=== PATIENT | female | born 1960 | race Caucasian/White ===

== ENCOUNTER → 2017-10-24 | Outpatient (CLI) | payer BC ==
--- NOTE | 2017-10-28 09:18 | MAM ---
EXAM DESCRIPTION: 3D Screening BILATERAL : Digital Mammography. CLINICAL HISTORY: 57 years Female SCREEN . No complaints. No family history of breast cancer. Postmenopausal. No HRT. COMPARISON: Baseline study at this facility. No prior reports available. TECHNIQUE: Bilateral CC and MLO projection full-field images, 3-D tomosynthesis digital mammographic technique. Also bilateral synthesized CC/ MLO full-field images. CAD not utilized. FINDINGS: The breast parenchymal density pattern is: Scattered areas of fibroglandular density. No skin thickening or nipple retraction bilateral solitary microcalcifications and solitary microcalcifications. Left axillary lymph nodes. Possible mass density in the 1100 clock position of the anterior third of the right breast which is similar density to the surrounding fibroglandular tissues. Lobulated and spiculated margins. Small calcifications. 5 cm from the nipple. No focal, stellate mass or density, focal asymmetry , and no suspicious microcalcifications left breast. IMPRESSION: BI-RADS CATEGORY: 0 - INCOMPLETE- Need additional imaging evaluation. FOLLOW-UP: Recall for additional imaging: Diagnostic 3-D tomosynthesis full field LM images bilateral breasts. Focal spot digital compression region of interest anterior right breast CC projection and focal spot digital magnification same region LM projection. Targeted right breast ultrasound. Written communication concerning the IMPRESSION and Follow-up, will be mailed to the patient and referring health care provider. Electronically signed by: Venkata Henry MD 10/28/2017 9:17 AM CDT
== END ==
LOC: MAMMO 10:53
PROVIDERS: ATTEND Nurse Practitioner Family
DX: Z12.31 Encounter for screening mammogram for malignant neoplasm of breast (principal)

== ENCOUNTER → 2017-11-05 | Outpatient (CLI) | payer BC ==
--- NOTE | 2017-11-05 11:08 | US ---
EXAM DESCRIPTION: Breast,Right: Ultrasound CLINICAL HISTORY: 57 yearsFemaleABNORMAL MAMMO. Probable mass density anterior right breast. COMPARISON: Digital diagnostic 3-D tomosynthesis bilateral mammography on this visit. TECHNIQUE: Transcutaneous scanning of the right breast utilizing two-dimensional and Doppler modes. Scanning performed by the seasonal customer service associate and Dr. Henry. FINDINGS: Scanning at the 1100 clock position, anterior third right breast, 4 cm from the nipple. Hypoechoic lesion with spiculated margins, parallel orientation with posterior acoustic shadowing. Dimensions of the mass are 7.1 x 6.5 mm. Normal vascularity. No adjacent solid masses or cysts. No parenchymal edema or large calcifications. Minimally palpable on the skin surface but no skin changes. No abnormal parenchymal vascularity. IMPRESSION: 1. BI-RADS CATEGORY: 5 - HIGHLY SUGGESTIVE OF MALIGNANCY. 2. Please refer to bilateral diagnostic 3-D tomosynthesis mammographic examination and report on this visit. The FINDINGS and the FOLLOW-UP plan were reviewed in person with the patient after the examination. Written communication explaining the IMPRESSION and FOLLOW-UP will be mailed to the patient and referring care provider. Critical communication: The critical value was discussed directly by phone with Dr. Yamile Padilla at approximately 1050 hours, on November 05, 2017. Electronically signed by: Venkata Henry MD 11/05/2017 11:07 AM CDT
--- NOTE | 2017-11-05 11:18 | MAM ---
EXAM DESCRIPTION: 3D Diagnostic, Bilateral: Digital Mammography CLINICAL HISTORY: 57 yearsFemaleABNORMAL MAMMOGRAM . Possible mass density upper outer quadrant anterior third of the right breast.. COMPARISON: 3-D Claire synthesis screening bilateral mammography 10/24/2017.. Targeted right breast ultrasound following this examination. Report from prior examination also reviewed. TECHNIQUE: Bilateral LM projection full-field images, 3-D tomosynthesis digital mammographic technique. Also bilateral synthesized LM full-field images. Spot magnification 2-D of the region of interest right breast, CC and LM projections CAD for 2-D magnification. FINDINGS: The breast parenchymal density pattern is: Scattered areas of fibroglandular density. No skin thickening or nipple retraction irregular mass density with spiculated margins measuring approximately 1 cm x 1 cm at the 1100 clock position of the right breast anterior third, approximately 4 cm from the nipple. Magnification views show spiculated margins, small microcalcifications and posterior extension of the mass. Denser than the surrounding soft tissues. Adjacent scattered calcifications and solitary and in groups. Similar calcifications in groups and solitary arrangements in the left breast. Focal asymmetry also noted at the 900 clock position of the right breast, 10 cm from the nipple. ULTRASOUND: Scanning at the 1100 clock position, anterior third right breast, 4 cm from the nipple. Hypoechoic lesion with spiculated margins, parallel orientation with posterior acoustic shadowing. Dimensions of the mass are 7.1 x 6.5 mm. Normal vascularity. No adjacent solid masses or cysts. No parenchymal edema or large calcifications. Minimally palpable on the skin surface but no skin changes. No abnormal parenchymal vascularity. IMPRESSION: BI-RADS CATEGORY: 5 HIGHLY SUSPICIOUS FINDINGS. HIGHLY SUGGESTIVE OF MALIGNANCY. Recommendation: Surgical consultation and/or tissue diagnosis. The FINDINGS and the FOLLOW-UP plan were reviewed in person with the patient after the examination. Written communication explaining the IMPRESSION and FOLLOW-UP will be mailed to the patient and referring care provider. CRITICAL COMMUNICATION: The critical value was discussed directly by phone with Dr. Yamile Padilla at approximately 1050 hours, on November 05, 2017. Electronically signed by: Venkata Henry MD 11/05/2017 11:16 AM [employer]
== END ==
LOC: MAMMO 08:42
PROVIDERS: ATTEND Nurse Practitioner Family
DX: R92.8 Other abnormal and inconclusive findings on diagnostic imaging of breast (principal)
CPT/HCPCS: 76641; 77066; G0279

== ENCOUNTER → 2017-11-13 | Outpatient (CLI) | payer BC ==
--- NOTE | 2017-11-13 10:58 | OP ---
DATE OF PROCEDURE: 11/13/17 PREOPERATIVE DIAGNOSIS: 1. Abnormal right mammogram with two lesions that are solid by ultrasound and have irregular margin. POSTOPERATIVE DIAGNOSIS: 1. Abnormal right mammogram with two lesions that are solid by ultrasound and have irregular margin. PROCEDURE: 1. Needle core biopsy, sonographically guided, of two discrete lesions, right breast. SURGEON: Minh Weber MD. FELT DYEING MACHINE TENDER: None. ANESTHESIA: Local infiltration of 1% lidocaine. INDICATION: The patient is a 57-year-old female who on routine mammography was found to have a lesion at the 11 o'clock position. Ultrasound reveals two separate lesions, one at approximately 12 o'clock and one at 11 o'clock. She was brought to the Ultrasound Suite today for biopsy of both under ultrasound guidance after the risks, benefits and alternatives are discussed and accepted. FINDINGS: Multiple cores were taken with the ultrasound revealing the biopsy needle within the mass. PROCEDURE: After the patient was placed in the supine position, the breast was examined with the ultrasound device and marked appropriately. The breast medial to the ulnar styloid device was then prepped with Betadine and draped. When this was done, local anesthesia was obtained and the 25-gauge needle was used to infiltrate the path between the insertion site and the mass. The skin was then incised with a 15 blade and then, as noted, multiple passes were taken with the biopsy needle with the ultrasound revealing it to be within the mass. The specimens were then set aside. There was significant bleeding which was controlled with pressure. The second lesion was then identified. A second entry site was infiltrated with local anesthesia and again a stab wound was performed. Again, the cores were taken of the 11 o'clock lesion without difficulty. The specimens were sent separately marked medial right breast at 12 o'clock and 11 o'clock right breast. Hemostasis was obtained with pressure and then single sutures of 4-0 Nylon were placed in each incision and closed. A sterile pressure dressing was applied with two Jorge wraps. The patient tolerated the procedure well. Estimated blood loss was approximately 25 to 50 mL. All sponge, needle and instrument counts were correct. #[id number] [facility]
--- NOTE | 2017-11-13 17:23 | US ---
EXAM DESCRIPTION: Biopsy/Needle Guidance CLINICAL HISTORY: 57 years Female RT BT MASS COMPARISON: Diagnostic ultrasound of the right breast on 11/05/2017. TECHNIQUE: The procedure was performed by Dr. Weber. Repeat ultrasound localized lesion at the 1200 clock position of the right breast, 4 cm from the nipple. Second lesion localized at the 1100 clock position of the right breast 4 cm from the nipple.. Sterile preparation. Sterile ultrasound guidance during needle passes. FINDINGS: Multiple images show an echogenic needle traversing the lesion at the 1200 clock position of the right breast in orthogonal axes. More images show an echogenic needle traversing the lesion at the 1100 clock position of the right breast in orthogonal axes. IMPRESSION: Successful, ultrasound-guided core needle biopsy of 2 lesions in the right breast by Dr. Weber. Adequate core samples were obtained. Pathology examination at remote facility, results pending. Electronically signed by: Venkata Henry MD 11/13/2017 5:22 PM CDT
== END ==
LOC: US 07:20
PROVIDERS: ATTEND Surgery
DX: N63.11 Unspecified lump in the right breast, upper outer quadrant (principal)

== ENCOUNTER → 2017-11-26 | Outpatient (CLI) | payer BC | LOC: LAB.O 09:23 | PROVIDERS: ATTEND Surgery | DX: C50.411 Malignant neoplasm of upper-outer quadrant of right female breast (principal); G44.52 New daily persistent headache (NDPH) ==

== ENCOUNTER → 2017-11-27 | Outpatient (CLI) | payer BC ==
--- NOTE | 2017-11-27 15:53 | RAD ---
EXAM DESCRIPTION: Chest,2 Views CLINICAL HISTORY: C50.411,. Malignant neoplasm of the upper-outer quadrant of right female breast. COMPARISON: Portable chest 05/01/2008 TECHNIQUE: PA, lateral views. FINDINGS: Lungs: Well-inflated with no acute infiltrate. Improved lung volumes since the prior study. Pleural spaces: No effusion or pneumothorax bilaterally. Heart: Normal size. Pulmonary Vascularity: Not increased. Mediastinum: Not widened. Aorta: Unremarkable. Bony Thorax/Spine: No acute bony thoracic abnormalities. Thoracic disc space narrowing at multiple levels. IMPRESSION: No radiographic evidence of acute cardiopulmonary disease. Stable since May 2008. Electronically signed by: Venkata Henry MD 11/27/2017 3:52 PM CDT
--- NOTE | 2017-11-27 16:20 | CT ---
EXAM DESCRIPTION: Head w/wo Contrast: Computed Tomography. CLINICAL HISTORY: BREAST CA-C51.411, DAILY JORDAN-G44.52 COMPARISON: Chest CT scan 11/27/2017. Ultrasound-guided biopsy right breast 11/13/2017 positive for malignancy. TECHNIQUE: Spiral -axial scans through the head and brain at 2.5 mm intervals, without and with nonionic IV contrast. Coronal and sagittal 2.0 reconstructions, before and after IV contrast. No adverse reactions. Total Exam DLP: 1504.95 mGy-cm. This exam was performed according to our departmental CT dose-optimization program which includes automated exposure control, adjustment of the mA and/or kV according to patient size and/or use of iterative reconstruction technique; to reduce radiation dose to as low as reasonably achievable (ALARA). FINDINGS: No hemorrhage. No mass-effect and no midline shift. Normal contrast enhancement. Small bilateral heterogeneous foci of low-density in the periventricular white matter. Not associated with hemorrhage or abnormal contrast enhancement. Small calcifications bilateral basal ganglia.Vascular calcifications right cavernous ICA.; physiologic calcifications in the pineal gland and choroid plexus. No effacement or displacement of the ventricles, CSF spaces, or subdural spaces. Normal contrast enhancement. No extra axial fluid collection or hemorrhage. No gross abnormalities of the bony calvarium. No unusual enhancement in the [place]. IMPRESSION: 1. No hemorrhage. No mass effect or midline shift.. Minimal bilateral white matter low-density may represent early cerebral microvascular disease along with basal ganglial calcifications. No mass effect or abnormal contrast enhancement. Electronically signed by: Venkata Henry MD 11/27/2017 4:19 PM CDT
== END ==
LOC: CT 08:11
PROVIDERS: ATTEND Surgery
DX: C50.411 Malignant neoplasm of upper-outer quadrant of right female breast (principal); G44.52 New daily persistent headache (NDPH)

== ENCOUNTER → 2017-11-28 | Outpatient (CLI) | payer BC ==
--- NOTE | 2017-11-28 20:48 | NM ---
EXAM DESCRIPTION: Bone Scan, Whole Body CLINICAL HISTORY: BREAST CANCER right. Biopsy proven October 2017. COMPARISON: Recent CT scan of the head with and without contrast and chest x-ray. TECHNIQUE: Patient injected with 30 mCi of technetium 99M MDP. IV. Delayed gamma camera images from various planes were obtained 3 hr after injection. FINDINGS: Small focal area of increased radiopharmaceutical activity posterior right ninth rib. Focal activity in the L5 and L2 vertebral bodies posteriorly. Otherwise normal activity in the long bones and flat bones. Minimal increased focal activity in the posterior left heel. Normal soft tissue activity. IMPRESSION: 1. Focal activity/uptake posterior right ninth rib. Differential includes previous trauma or metastasis. Correlate with rib films. Consider follow-up chest CT scan. 2. Focal activity/uptake in the L2 region and L5 region which may represent spondylosis, facet degeneration, or metastasis. Correlate with lumbar spine radiographs. Electronically signed by: Venkata Henry MD 11/28/2017 8:47 PM CDT
== END ==
LOC: NM 09:18
PROVIDERS: ATTEND Surgery
DX: C50.411 Malignant neoplasm of upper-outer quadrant of right female breast (principal); G44.52 New daily persistent headache (NDPH)

== ENCOUNTER → 2017-12-02 | Outpatient (CLI) | payer BC ==
--- NOTE | 2017-12-02 15:53 | RAD ---
EXAM DESCRIPTION: Ribs,Right 3 Views CLINICAL HISTORY: ABNORMAL BONE SCAN increased uptake in the right ninth rib COMPARISON: Bone scan dated 28 Nov 2017 TECHNIQUE: 4 views FINDINGS: No rib abnormality is seen. No pneumothorax is detected. Surgical clips are seen in the right upper quadrant. Pedicle screw fusion of the lower lumbar spine is observed. IMPRESSION: No rib abnormality is seen. Electronically signed by: Frederick Tejeda MD 12/02/2017 3:52 PM CDT
== END ==
LOC: LAB.O 15:00
PROVIDERS: ATTEND Surgery
DX: R93.7 Abnormal findings on diagnostic imaging of other parts of musculoskeletal system (principal)

== ENCOUNTER 2018-01-10 05:50 | Inpatient (IN) | payer BC ==
[2018-01-10] MEDS ORDERED: PROPOFOL 200 MG/20 ML VIAL IV ONE (07:00)
[2018-01-10] MEDS ORDERED: PANTOPRAZOLE SODIUM IV 40 MG VIAL ONE (07:00)
[2018-01-10] MEDS ORDERED: DEXAMETHASONE INJ 10 MG/ML VIAL ONE (07:00)
[2018-01-10] MEDS ORDERED: LIDOCAINE 1% 2 ML VIAL INJ ONE (07:00)
[2018-01-10] MEDS ORDERED: HYDROmorphone HCL INJ 2 MG/ML VIAL ONE ×2 (07:00→09:22)
[2018-01-10] MEDS ORDERED: MIDAZOLAM INJ 2 MG/2 ML VIAL ONE (07:00)
[2018-01-10] MEDS ORDERED: raNITIdine HCL INJ 25 MG/ML VIAL ONE (07:00)
[2018-01-10] MEDS ORDERED: METOCLOPRAMIDE HCL INJ 10 MG/2 ML VIAL ONE (07:00)
[2018-01-10] MEDS ORDERED: ceFAZolin SODIUM 1 GM VIAL ONE ×3 (07:00→10:00)
[2018-01-10] MEDS ORDERED: fentaNYL CITRATE INJ 50 MCG/ML AMP ONE (07:00)
[2018-01-10] MEDS ORDERED: KETOROLAC TROMETHAMINE INJ 30 MG/ML VIAL ONE (07:00)
[2018-01-10] MEDS ORDERED: LACTATED RINGERS 1,000 ML ONE (07:11)
[2018-01-10] MEDS ORDERED: SODIUM CHL 0.9% 100ML MINI-BAG 100 ML IVPB ONE (07:11)
[2018-01-10] MEDS ORDERED: LEVALBUTEROL NEBS 1.25 MG/3 ML VIAL NEB ONE ×2 (07:57→14:28)
[2018-01-10] MEDS ORDERED: ACETAMINOPHEN IV 1000MG 100 ML ONE (09:19)
[2018-01-10] MEDS ORDERED: ELECTROLYTE-A 1,000 ML IVS ONE (11:42)
[2018-01-10] MEDS ORDERED: MORPHINE SULFATE INJ 10 MG/ML VIAL IV PRN (13:59)
[2018-01-10] MEDS ORDERED: ONDANSETRON INJ 4 MG/2 ML VIAL IV PRN (13:59)
--- NOTE | 2018-01-10 14:20 | HP ---
CHIEF COMPLAINT: Biopsy-prove carcinoma of the right breast. HISTORY OF PRESENT ILLNESS: The patient is a 57-year-old female who was found to have abnormal mammogram. Needle core biopsy of two lesions revealed invasive carcinoma of the right breast. She has a cardiac history and underwent a cardiac clearance prior to general anesthesia. This has been done. She has a negative metastatic workup. After the risks, benefits and alternatives to surgical treatment of her right breast carcinoma, she is admitted to the Surgical Suite for a right modified radical mastectomy and a left simple mastectomy. PAST MEDICAL HISTORY: 1. Gastroesophageal reflux disease. 2. Anxiety. 3. Depression. 4. History of migraine headaches. 5. History of urinary tract infections. PAST SURGICAL HISTORY: 1. Femur fracture as a child. 2. x2. 3. Back surgery. 4. Gallbladder surgery 13 years ago. CURRENT MEDICATIONS: She takes no medications. ALLERGIES: NO KNOWN DRUG ALLERGIES. FAMILY HISTORY: Noncontributory. SOCIAL HISTORY: The patient is . She has a significant smoking history of 20 to 30 pack years. No history of alcohol abuse. REVIEW OF SYSTEMS: There is no history of chest pain or shortness of breath, no history of change in her bowel habits or weight loss, no history of melanotic stools, hematemesis or hematochezia. She has had a recently urinary tract infection, but is currently without symptoms. PHYSICAL EXAMINATION: GENERAL: The patient is awake, alert, in no acute distress. VITAL SIGNS: The patient is currently afebrile, normotensive. HEENT: Sclerae nonicteric. Mucous membranes moist. NECK: Supraclavicular area and axillae without adenopathy. BACK: Without CVA tenderness. CHEST: Equal breath sounds bilaterally. HEART: Regular rate and rhythm. BREASTS: Bilateral breasts are without discrete mass, skin change or nipple discharge. There are two well-healed needle core biopsy sites in the right breast. ABDOMEN: Soft without organomegaly or masses. PELVIC/RECTAL: Deferred. EXTREMITIES: Without cyanosis, clubbing or edema. LABORATORY: Preoperative hemoglobin 16, weight 7,400. Normal differential. Platelet count 284,000. Potassium 4.5, creatinine 0.68. ASSESSMENT: 1. Biopsy-prove carcinoma of the breast. PLAN: The patient is admitted for right modified radical mastectomy and left simple mastectomy. #[id number] [facility]
--- NOTE | 2018-01-10 14:41 | OP ---
DATE OF PROCEDURE: 01/10/18 PREOPERATIVE DIAGNOSIS: 1. Biopsy-proven carcinoma of the right breast. POSTOPERATIVE DIAGNOSIS: 1. Biopsy-proven carcinoma of the right breast. PROCEDURE: 1. Right modified radical mastectomy. 2. Left simple mastectomy. SURGEON: Minh Weber MD. ADMINISTRATIVE SUPERVISOR: None. ANESTHESIA: General endotracheal anesthesia. INDICATION: The patient is a 57-year-old female who on routine mammography was found to have two suspicious lesions. Needle core biopsy revealed invasive carcinoma. She was originally scheduled for surgery, but had an abnormal EKG, so she underwent a cardiac clearance and has been found to be at low risk. She was brought to the Surgical Suite today for right modified radical mastectomy and left simple mastectomy after the risks, benefits and alternatives were discussed. The patient wished to undergo simple mastectomy due to the large breast size, problems with her back and did not want to have problems with her balance or back pain due to the surgery. She also felt it was good to no longer require further mammography or possible biopsies in the future. She is aware that it did not decrease her risk of from breast cancer. FINDINGS: There was no obvious lymphadenopathy in the specimen. The nerves were identified. PROCEDURE: After adequate general endotracheal anesthesia was obtained in the supine position, the patient was prepped and draped in the usual sterile manner. She was given 2 grams of Ancef intravenously. Surgical time-out was taken. At this point, the breasts were both marked with a marking pen. The right breast superior flap was then made with a sharp knife. Prior to this, a towel was placed over the left breast. Dissection was carried down through the skin using electrocautery. Radha thyroid grasping forceps were then placed on the skin edge and the dissection of the superior flap was performed medially to the sternal border, superior to the clavipectoral fascia and laterally into the axilla using electrocautery. When this was done, hemostasis was obtained with electrocautery and a moist sponge was placed under the flap. The inferior flap was then taken in the same manner. When this was done, a sponge was placed under the inferior flap. Retractors were placed under the superior flap and the breast was dissected from superior and medial, inferiorly and laterally, eventually into the axilla. The axillary node dissection was then performed with the chest wall being the medial border, the thoracodorsal bundle and the long thoracic nerve of the [place] the posterior border and the axillary vein the superior border. When this was done, the specimen was sent as an en bloc specimen. The wound was then copiously irrigated with saline. Hemostasis was noted to be adequate. At this point, two stab wounds were made in the inferior flap and RADHA drains were placed, introduced through the stab wounds, one placed on the chest wall and one in the axilla. They were sutured in place with 3-0 Nylon ligatures. When this was done, the skin edges were approximated with a running 3-0 Vicryl suture. It was then irrigated through the suture and aspirated through the drains. The skin edges were approximated with a skin stapler. The drains were cut to appropriate length and placed to closed suction drainage. When this was done, a towel was placed over the wound. Instruments, gowns and gloves were all changed. New towels were placed complete around the wound. At this point, the superior flap of the left breast was taken, first with a sharp knife and then with electrocautery, then the Radha clamps and dissection with electrocautery. When this was done, to the clavipectoral fascia and the sternal border medially, sponge was placed under the flap and the inferior flap was taken in a like manner. When this was done, the wound was again irrigated with saline. Two RADHA drains were placed through the inferior flap and sutured in place with 3-0 Nylon ligatures. The skin edges were approximated with a running 3-0 Vicryl suture. Again, the wound was irrigated through the wound and aspirated through the drains. Skin edges were approximated with a skin stapler. The drains were cut and placed to closed suction drainage with grenades. Sterile pressure dressings were applied. The patient was then awakened and taken to the Recovery Room in stable condition. Estimated blood loss was approximately 250 to 300 mL. All sponge, needle and instrument counts were correct. #[id number] [facility]
[2018-01-10] MEDS: HYDROcodone 5MG/APAP 325MG 1 EA TAB PO PRN ×2 (17:56→22:48)
[2018-01-10] MEDS: LACTATED RINGERS 1,000 ML IVS PRN (17:58)
[2018-01-10] MEDS: NICOTINE PATCH 14 MG TD SCH (17:59)
[2018-01-10] MEDS ORDERED: LEVALBUTEROL NEBS 1.25 MG/3 ML VIAL NEB PRN (18:11)
[2018-01-10] MEDS: ceFAZolin SODIUM 2 GRAMS PREMI 2 GM in PREMIX BAG 1 BAG IVPB SCH (18:46)
[2018-01-10] MEDS ORDERED: PANTOPRAZOLE SODIUM TAB 40 MG PO ONE (19:11)
[2018-01-10] MEDS ORDERED: ceFAZolin SODIUM 2 GRAMS PREMI 50 ML IVPB ONE (19:12)
[2018-01-10] MEDS: LEVALBUTEROL NEBS 1.25 MG/3 ML VIAL NEB SCH (20:06)
--- NOTE | 2018-01-10 22:31 | CONS ---
DATE OF CONSULTATION: 01/10/18 SUPERVISING PHYSICIAN: Jay Jay Orellana M.D. REASON FOR CONSULTATION: Postoperative bilateral mastectomy with abnormal pre- op EKG. HISTORY OF PRESENT ILLNESS: This is a 57 year-old female patient who several weeks ago was seeing her primary care provider, Yamile Padilla, and had a routine mammogram. She was found to have a lump in her right breast. Dr. Weber did a biopsy and found carcinoma of the right breast. Today, she came in for a scheduled bilateral mastectomy per Dr. Minh Weber, general surgeon. Perioperatively there were no complications and I am seeing her postoperatively on the Medical/Surgical floor. PAST MEDICAL HISTORY: 1. Gastroesophageal reflux disease. 2. Recently diagnosed hyperthyroidism. She has not been treated as of yet. PAST SURGICAL HISTORY: 1. Cholecystectomy. 2. Two back surgeries. OUTPATIENT MEDICATIONS: None. ALLERGIES: NO KNOWN DRUG ALLERGIES. FAMILY HISTORY: Positive for coronary artery disease and hypertension. Dad had lung cancer and an aunt had lymphoma. SOCIAL HISTORY: She lives in [place]. She has 2 sons. She is raising 4 grandchildren. She smokes 1/2 pack a day and has for 40+ years. She is a half pack per day smoker and has been smoking since she was 17. She denies any ETOH or illicit drug use. REVIEW OF SYSTEMS: Negative except as per History of present illness. PHYSICAL EXAMINATION: VITAL SIGNS: Temperature 98.2, pulse 82, respiratory rate 14, blood pressure 128/89, O2 sat is 95% on room air. GENERAL: This is a 57 year-old female patient who is sitting up in her hospital bed watching television. She is in no acute distress. HEENT: Normocephalic and atraumatic. Pupils are equal and reactive. Oropharynx is clear. NECK: Supple without mass. RESPIRATORY: Essentially clear to auscultation bilaterally. CHEST: She has a stocking binding on her chest. It is dry and intact. There is equal rise and fall of the chest with inspiration and expiration. HEART: Regular rate and rhythm. GASTROINTESTINAL: Abdomen is soft, nondistended, non-tender. Bowel sounds are positive. EXTREMITIES: No cyanosis, clubbing or edema. NEUROLOGIC: She is awake, alert and oriented times three. LABORATORY: WBCs are 7.4, hemoglobin 16.1, hematocrit 47, platelets 284. Sodium 137, potassium 4.5, chloride 101, carbon dioxide 30, BUN 13, creatinine 0.68, glucose 84, serum osmolality 273.1, calcium 10. Urinalysis is basically negative with the exception of a moderate amount of urine leukocyte esterase. All other labs and films have been reviewed via the EMR. IMPRESSION: 1. Biopsy proven carcinoma of the right breast status post right radical mastectomy and left simple mastectomy, postoperative day [address] Minh Weber, general surgeon. 2. Gastroesophageal reflux disease. 3. History of tobacco use. She is a 25+ pack year smoker. 4. New diagnosis of hyperthyroidism that she has not been treated for as yet. PLAN: We will continue present supportive care. Operative issues will be per Dr. Minh Weber, general surgeon. I have ordered Xopenex treatments both as needed and p.r.n. She has incentive spirometry ordered and I will also order pulmonary hygiene. I have ordered a nicotine patch as well we will monitor her telemetry every 4 hours. Encouraged good pulmonary hygiene. Will continue to follow the patient closely and treat as appropriate. #[id number] [facility]
[2018-01-11] MEDS: ceFAZolin SODIUM 2 GRAMS PREMI 2 GM in PREMIX BAG 1 BAG IVPB SCH ×2 (03:01→10:52)
[2018-01-11] MEDS: LACTATED RINGERS 1,000 ML IVS PRN (04:08)
[2018-01-11] MEDS: PANTOPRAZOLE SODIUM TAB 40 MG PO SCH (06:09)
[2018-01-11] MEDS: HYDROcodone 5MG/APAP 325MG 1 EA TAB PO PRN ×4 (07:16→20:07)
[2018-01-11] MEDS: LEVALBUTEROL NEBS 1.25 MG/3 ML VIAL NEB SCH ×3 (08:19→16:34)
--- NOTE | 2018-01-11 10:30 | PN ---
DATE: 01/12/18 SUPERVISING PHYSICIAN: Jay Jay Orellana MD SUBJECTIVE: The patient is sitting up in bed, has no complaints. Has had no urges for a cigarette so she has not required her nicotine patch. Denied chest pain, shortness of breath, nausea or vomiting. OBJECTIVE: VITAL SIGNS: She is afebrile. Heart rate 74, blood pressure 114/73 , respiratory rate 20, 02 saturation 96% on room air. CHEST: Essentially clear to auscultation bilaterally. CARDIAC: Regular rate and rhythm. NEUROLOGIC: She is awake, alert, and oriented x3. LABORATORY: WBCs are slightly elevated to 13.6 with neutrophils 86.9. Hemoglobin 12, hematocrit 35.8. All other labs and films have been reviewed via the EMR. ASSESSMENT: 1. Biopsy-proven carcinoma of the right breast status post right radical mastectomy and left simple mastectomy, postoperative day #1, performed by Dr. Minh Weber, general surgeon. 2. Gastroesophageal reflux disease. 3. History of tobacco use. She is a 25+ pack year smoker. 4. New diagnosis of hyperthyroidism that she has not been treated as yet. PLAN: We will continue present supportive care. Operative issues will be per Dr. Weber. I have discontinued her telemetry. She has had no chest pain and no abnormal EKG changes on her manager cardiac. We discussed smoking cessation at length and she continues to have the nicotine patch if she needs it but I have encouraged her to stop smoking and will continue to monitor closely, followup as needed. Dr. Orellana is the collaborating physician available for consultation. #[id number] [facility]
[2018-01-11] MEDS ORDERED: ceFAZolin SODIUM 2 GRAMS PREMI 50 ML IVPB ONE (10:47)
[2018-01-11] MEDS: ENOXAPARIN SODIUM 40 MG/0.4 ML SYG SUBCU SCH (10:52)
[2018-01-11] MEDS: NICOTINE PATCH 14 MG TD SCH (12:05)
[2018-01-12] MEDS: HYDROcodone 5MG/APAP 325MG 1 EA TAB PO PRN ×2 (03:29→10:40)
[2018-01-12] MEDS: PANTOPRAZOLE SODIUM TAB 40 MG PO SCH (06:06)
[2018-01-12] MEDS: ENOXAPARIN SODIUM 40 MG/0.4 ML SYG SUBCU SCH (08:47)
[2018-01-12] MEDS: NICOTINE PATCH 14 MG TD SCH (08:47)
[2018-01-12] MEDS: LEVALBUTEROL NEBS 1.25 MG/3 ML VIAL NEB SCH ×2 (08:50→20:27)
[2018-01-12 12:34] VITALS: BP 91/60; TEMP 97.5; O2SAT 98
--- NOTE | 2018-01-12 21:15 | DS ---
FINAL DIAGNOSIS: 1. Carcinoma of the right breast pending pathology report. SURGICAL PROCEDURE: 1. Right modified radical mastectomy and left simple mastectomy. HISTORY OF PRESENT ILLNESS: The patient is a 57-year-old female who was found to have abnormal mammogram. Needle core biopsy of two lesions revealed invasive carcinoma of the right breast. She has a cardiac history and underwent a cardiac clearance prior to general anesthesia. This has been done. She has a negative metastatic workup. After the risks, benefits and alternatives to surgical treatment of her right breast carcinoma, she is admitted to the Surgical Suite for a right modified radical mastectomy and a left simple mastectomy. LABORATORY: Her white blood cell count on the first postoperative morning was 13.6, hemoglobin 12, platelet count 232,000, 86% neutrophils. Pathology report is pending. HOSPITAL COURSE: The patient was admitted to the Surgical Suite on the morning of 01/10/15 where she underwent the noted procedures. She tolerated the procedure well. By the first postoperative morning she was tolerating clear liquids well, having moderate pain. J-P drainage was moderate. She had good urine output. She was advanced to a regular diet and her IV was saline locked. She continued to do well tolerating a regular diet. By the second postoperative morning a dressing change was performed and her flaps were stable other than a small amount of mottling on the right side. The lateral chest wall drain on the left was removed as it had minimal drainage. She was rewrapped and discharged home. PLAN: Condition on discharge was good. Prognosis is pending the pathology report. She will followup in my office this coming week. Hopefully home health will be obtained tomorrow to do dressing changes on a daily basis and milk her drains. She was given a prescription for [place] 5, #30, one p.o. every 4 hours p.r.n. pain. She was discharged on her regular diet. She was given both my home phone number, my office number and my 's cell phone number to call if she has problems or questions prior to her appointed visit. [facility][phone] [facility]Alan
== END 2018-01-12 12:05 | disposition home health service (06) | DRG 583 ==
LOC: CANPRESDC → AMB 05:50 → MS 15:00
PROVIDERS: ADMIT Surgery; ATTEND Surgery
PROC: 0HTV0ZZ Resection of Bilateral Breast, Open Approach (ICD-10-PCS; principal; 2018-01-10)
DX: C50.911 Malignant neoplasm of unspecified site of right female breast (principal); N62 Hypertrophy of breast; K21.9 Gastro-esophageal reflux disease without esophagitis; F41.0 Panic disorder [episodic paroxysmal anxiety]; F32.9 Major depressive disorder, single episode, unspecified; R94.31 Abnormal electrocardiogram [ECG] [EKG]; E05.90 Thyrotoxicosis, unspecified without thyrotoxic crisis or storm; F17.210 Nicotine dependence, cigarettes, uncomplicated; Z90.49 Acquired absence of other specified parts of digestive tract

== ENCOUNTER → 2018-07-24 | Outpatient (CLI) | payer BC ==
--- NOTE | 2018-07-24 12:09 | MRI ---
EXAM DESCRIPTION: Brain w/o Contrast: MRI. CLINICAL HISTORY: BREAST CANCER. Headaches and double vision twice a week. COMPARISON: None. TECHNIQUE: Multiplanar, high-field MRI unit, multiple diffusion sequences, multiple conventional sequences without contrast. FINDINGS: Multiple foci of bilateral hyperintense FLAIR and T2-weighted signal in the periventricular white matter and riggs-white matter junctions of the cerebral hemispheres. Slightly more lesions in the left cerebral hemispheres. . No hemorrhage, no cerebral edema, no mass-effect. No diffusion restriction. Normal signal in the bilateral basal ganglia. No hemorrhage, no mass effect, no diffusion restriction. Normal signal in the brainstem and cerebellar hemispheres. No hemorrhage, no cerebral edema, no mass-effect. Normal diffusion. Concordance of the diffusion and non-diffusion sequences with no diffusion restriction. Cortical sulci, ventricles, and other CSF spaces, and the subdural spaces are normally configured for the patient's age. No effacement or displacement. No midline shift. No extra-axial hemorrhage. Normal flow signal void in the major vessels of the [place], and the venous sinuses. Right vertebral artery dominant. IACs are symmetric bilaterally. No fluid in the bilateral mastoid air cells. No mass effect in the bilateral cerebellopontine angles. Pituitary gland occupies most of the sella. Base of the cerebellar tonsils is at the level of the foramen magnum. No of acute abnormalities in the. The bony calvarium is intact. IMPRESSION: 1. Bilateral focal lesions in the periventricular white matter and subcortical white matter more in the left cerebral hemisphere than the right. Not associated with mass effect, hemorrhage, or diffusion restriction. 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 Should also consider demyelinating process such as multiple sclerosis. Also acute versus chronic migraines. No lesions in the basal ganglia, brainstem, or cerebellar hemispheres. Consider follow-up MRI scan with gadolinium IV contrast for comparison. Electronically signed by: Venkata Henry MD 07/24/2018 12:08 PM [facility]
== END ==
LOC: MRI 10:31
PROVIDERS: ATTEND Internal Medicine Hematology & Oncology
DX: C50.411 Malignant neoplasm of upper-outer quadrant of right female breast (principal)